=== PATIENT | male | born 1990 | race Caucasian/White ===

== ENCOUNTER 2017-07-13 22:08 | Emergency (ER) | payer MEDICAID, OTHER ==
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
== END 2017-07-14 09:41 ==
LOC: JD.ED 22:08
DX: S10.91XA Abrasion of unspecified part of neck, initial encounter (principal); S20.312A Abrasion of left front wall of thorax, initial encounter; S40.812A Abrasion of left upper arm, initial encounter; S40.811A Abrasion of right upper arm, initial encounter; S50.811A Abrasion of right forearm, initial encounter; F32.2 Major depressive disorder, single episode, severe without psychotic features; F17.210 Nicotine dependence, cigarettes, uncomplicated; X83.8XXA Intentional self-harm by other specified means, initial encounter
CPT/HCPCS: 36415; 80053; 80306; 85025; 99285; G0480